=== PATIENT | male | born 1990 | race Asian ===

== ENCOUNTER → 2016-08-23 | Outpatient (CLI) | payer OTHER | LOC: COL.PUL 10:55 | DX: R06.02 Shortness of breath (principal) ==

== ENCOUNTER → 2016-09-06 | Outpatient (CLI) | payer OTHER | LOC: COL.PUL 09:46 | DX: R06.02 Shortness of breath (principal); R94.2 Abnormal results of pulmonary function studies | CPT/HCPCS: J7674 ==